=== PATIENT | male | born 1975 | race Caucasian/White ===

== ENCOUNTER → 2018-12-28 | Outpatient (CLI) | payer OTHER ==
--- NOTE | 2018-12-28 15:57 | PCVCIMAG ---
APPROVED REPORT Study performed: 12/28/2018 13:25:47 Exam: Stress Echocardiogram Indication: Chest pain , Palpitations, Abn EKG Patient Location: Echo lab Stress Nurse: Loly Turner RN Room #: 2 Status: routine Ht: 5 ft 8 in HR: 79 bpm BP: 118/88 mmHg Rhythm: NSR Medical History Medical History: CARLOS, Cardiac Risk Factors: Hyperlipidemia Pretest Chest Pain Characteristics: No chest pain Exercise History: Sedentary Procedure The patient underwent an Exercise Stress Test using the Bimal Protocol. Blood pressure, heart rate, and EKG were monitored. An Echocardiogram was performed by contact lens technician in four stages in quad fashion. At peak stress, four selected images were obtained and placed side by side with resting images for comparison. Stress Test Details Stress Test: Exercise stress testing was performed using a Bimal protocol. HR Resting HR: 79 bpmMax Heart Rate (APMHR): 176 bpm Max HR Achieved: 193 bpmTarget HR (85% APMHR): 149 bpm % of APMHR: 109 Recovery HR: 117 bpm HR response to stress: Normal HR response to stress BP Resting BP: 118/88 mmHg Max BP: 160/72 mmHg Recovery BP: 138/80 mmHg BP response to stress: Normal blood pressure response to stress. ECG Resting ECG: Sinus Rhythm Stress ECG: Sinus Rhythm ST Change: Non-ischemic Arrhythmia: Occasional PVCs Recovery ECG: Sinus Rhythm Recovery ST Change: Non-ischemic Recovery Arrhythmia: none Clinical Reason for Termination: Maximal effort Stress Symptoms: fatigue Exercise duration: 11 min 00 sec Highest Stage Achieved: Stage 4: 4.2 mph at 16% grade. Exercise capacity: 13.7 METs Overall Exercise Capacity for Age: Normal Scale: Active Angina Score: None No complications. Stress ECG Conclusion The patient exercised according to the BIMAL protocol for 11:00 mins; achieving a work level of 13.7 METS. The resting heart rate of 79bpm neetu to a maximum heart rate of 193 bpm. This value represent 109% of the maximal, age-predicted heart rate. The resting blood pressure of 118/88 mmHg, neetu to a maximum blood pressure of 160/72 mmHg. The exercise test was stopped due to fatigue . Pre-Stress Echo The resting Echocardiogram showed normal left ventricular contractility with an estimated Ejection Fraction of about 55-60%. Normal wall motion in all segments on baseline images. Post-Stress Echo The stress Echocardiogram showed normal left ventricular contractility with an estimated Ejection Fraction of about 65-70%. Normal augmentation of wall motion in all segments on post stress images. Clinical No clinical or ECG evidence for ischemia. Conclusion Clinical Response: Non-ischemic Exercise Capacity: Superior Stress ECG Response: Non-ischemic Stress Echo Images: Non-ischemic No clinical, EKG or echocardiographic evidence for ischemia. No echocardiographic evidence for exercise induced ischemia. Normal stress echocardiogram with maximal exercise stress. <Conclusion> No clinical, EKG or echocardiographic evidence for ischemia. No echocardiographic evidence for exercise induced ischemia. Normal stress echocardiogram with maximal exercise stress.
== END | disposition home or self-care (01) ==
LOC: PCVCIMAG 13:07
PROVIDERS: ATTEND Family Medicine
DX: R07.9 Chest pain, unspecified (principal); R00.2 Palpitations; R94.31 Abnormal electrocardiogram [ECG] [EKG]
CPT/HCPCS: 93325; 93351